=== PATIENT | female | born 1960 | race Caucasian/White ===

== ENCOUNTER → 2024-05-25 | Outpatient (BNVA) | payer MEDICARE, MEDICAID, SELFPAY | END | disposition home or self-care (01) | PROVIDERS: PCP Registered Nurse Community Health; Referring Provider Registered Nurse Community Health; Visit Provider Physician Assistant | DX: N31.9 Neuromuscular dysfunction of bladder, unspecified (principal); I10 Essential (primary) hypertension; Z87.440 Personal history of urinary (tract) infections; Z95.0 Presence of cardiac pacemaker | CPT/HCPCS: 99212; Q3014; G0463 ==

== ENCOUNTER 2024-06-19 13:12 | Emergency (ER) | payer MEDICARE, MEDICAID, SELFPAY ==
[2024-06-19 13:35] VITALS: BP 143/95; PULSE 60; RESP 18; TEMP 36.7; O2SAT 99
--- NOTE | 2024-06-19 13:47 | XR_ITS ---
Examination: CT brain head without contrast. 2-D sagittal coronal reconstructions Date and time of exam:June 19, 2024 1414 hrs. Indications: Patient fell today with injury to the head, head pain CTDI: vol (mGy):52.8 DLP: (mGycm):1048 Technique: Multiple CT axial sections of the brain have been obtained, 5 mm slice thickness. Contrast has not been administered. 2-D sagittal, coronal reconstructions have been obtained Low dose protocols were performed. One or more of the following dose reduction techniques were used; automated exposure control, adjustment of the mA and/or KV according to patient size, use of iterative reconstruction technique. Findings: No significant ventricular enlargement. Intra-axial or extra-axial hemorrhage density is not seen. No mass effect or midline shift Basal cisterns are not remarkable. Fourth ventricle is midline. Cranial vault intact. Impression: Negative for acute hemorrhage, mass effect or midline shift
--- NOTE | 2024-06-19 13:48 | EDNOTE_ITS ---
<Statement entered by Whit Chirinos MD - 06/19/24 17:35> As co-signing physician, I was present and available for consult prn. I concur with the plan and care as documented by the midlevel provider. ED Wound/Laceration-RME/HPI General Chief Complaint: Wound/Laceration Stated Complaint: LAC TO RIGHT FOREHEAD, CONNOR Time Seen by Provider: 06/19/24 13:23 Arrival date/time: 06/19/24 13:12 RME / HPI RME / HPI narrative: 64-year-old female patient was brought in by caregiver for evaluation regarding ground-level fall. Patient sustained a ground-level fall, trip and fall, sustaining 1 cm gaping laceration, mid forehead. Patient complained of headache. Denies any neck pain. Denies any other injury patient is taking Xarelto. Related Data Home Medications ?Medication ?Instructions ?Recorded ?Confirmed aripiprazole 5 mg tablet 5 mg PO QHS 08/22/22 5 buspirone 10 mg tablet 10 mg PO TID 08/22/22 famotidine 40 mg tablet 40 mg PO QDAY 08/22/2205/25 fluticasone propionate 50 2 spray intranasal QDAY 04/1505/25/24 mcg/actuation nasal spray,suspension fosinopril 20 mg tablet 20 mg PO QDAY 08/22/2205/25 ibuprofen 600 mg tablet 600 mg PO BID PRN 08/22/22 0 05/25/24 loratadine 10 mg tablet 10 mg PO QDAY 08/22/2205/25 metoprolol tartrate 25 mg tablet 25 mg PO BID 08/22/22 05/25/24 mirabegron 50 mg tablet,extended 50 mg PO QDAY 3 05/25/24 release 24 hr (Myrbetriq) rivaroxaban 20 mg tablet (Xarelto) 20 mg PO QDAY 08/2205/25/24 solifenacin 10 mg tablet 10 mg PO QDAY 08/22/2205/25 spironolactone 25 mg tablet 25 mg PO QDAY 08/22/2207/16 zonisamide 100 mg capsule 300 mg PO QHS 08/22/2205/25 Allergies Allergy/AdvReac Type Severity Reaction Status Date / Time No Known Allergies Allergy Verified 05/25/24 13:39 Review of Systems Review of Systems Narrative Review of Systems: Review of system reviewed and within normal limits except mentioned in HPI ED Exam Narrative Physical exam: VITAL SIGNS: Reviewed. GENERAL APPEARANCE: Alert and interactive, follows commands, no acute distress, HEAD AND FACE: +2 cm gaping laceration forehead ENT: PERRL, pink conjunctivitis, eyelid no trauma, Mucous membrane moist. NECK: Supple, nontender, no nuchal rigidity. CHEST: No tenderness, no crepitus, no paradoxical movement, no retractions. LUNGS: Clear, well ventilated, symmetric, no rales, no wheezing, no ronchi, no stridor, good breath sounds bilaterally. HEART: Regular rate, regular rhythm, no murmur, no gallops. ABDOMEN: Soft, positive bowel sounds, nondistended, no guarding, nontender, no rebound, no masses, RECTAL: Deferred. GENITAL: Deferred. NEUROLOGICAL: Gross motor function intact sensory function intact, Appropriate for age. MUSCULOSKELETAL: low back nontender, full range of motion. EXTREMITIES: Nontender, full range of motion. SKIN: Color pink, dry, no rash, no lacerations, no abrasions, no contusions. LYMPHATICS: Deferred. Course Quality Measures none Orders Category Date Time Status CT head/brain wo con Stat Exams 06/19/24 13:47 Completed Acetaminophen Tab [Tylenol ES Tab] Med 06/19/24 13:47 Discontinued 1,000 mg PO X1 ONE Lidocaine 1% 20 ml [Xylocaine 1% 20 ML] Med 06/19/24 13:47 Discontinued 10 ml INFL X1 ONE TET,DIP/PERT AC (Adult)-Tdap [Boostrix Adult (Tdap) Med 06/19/24 13:48 Discontinued Vacc] 0.5 ml IMI .ONCE ONE Vital Signs Vital signs: Vital Signs Temperature 98.1 F 06/19/24 13:35 Pulse Rate 60 06/19/24 13:35 Respiratory Rate 18 06/19/24 13:35 Blood Pressure 143/95 H 06/19/24 13:35 Pulse Oximetry (%) 99 06/19/24 13:35 Oxygen Delivery Method Room Air 06/19/24 13:35 Procedures -ED Laceration Laceration 1: Site: face Size (cm): 1 Description: linear Depth: simple, single layer Local Anesthetic: lidocaine 1% Amount of anesthesia used (mL): 2 Pre-repair: wound explored and irrigated extensively Skin layer closed with: nylon Size (cm): 5-0 Number of sutures: 3 Technique: simple, interrupted Wound / Laceration MDM Narrative MDM Narrative:: 64-year-old female patient was brought in by caregiver for evaluation regarding ground-level fall. Patient sustained a ground-level fall, trip and fall, sustaining 1 cm gaping laceration, mid forehead. Patient complained of headache. Denies any neck pain. Denies any other injury patient is taking Xarelto. CT scan of the head came back unremarkable. Repair and suturing was done by me see procedure notes. Patient tolerated the procedure well. Patient tolerated the procedure well. 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 Medications / Prescriptions Medications or Prescriptions considered but not ordered:: None Medication administrations:: Medication Administration History Discontinued Medications Acetaminophen (Acetaminophen 500 Mg Tablet) 1,000 mg PO X1 ONE Stop: 06/19/24 13:48 Last Admin: 06/19/24 14:05 Dose: 1,000 mg Documented By: Diphtheria/Tetanus/Acell Pertussis (Diphth,Pertuss(Acell),Tet Vac 0.5 Ml Syr- Adult) 0.5 ml IMi .ONCE ONE Stop: 06/19/24 13:49 Last Admin: 06/19/24 14:45 Dose: 0.5 ml Documented By: Lidocaine HCl (Lidocaine Hcl 1% 20 Ml Vial) 10 ml INFL X1 ONE Stop: 06/19/24 13:48 Last Admin: 06/19/24 14:39 Dose: 10 ml Documented By: Boostrix and Tylenol Consultations Consultation(s) initiated? (list below): No Diagnosis Wound Differential Diagnosis: laceration, abrasion and avulsion of skin Most likely diagnosis given after review of the tests above:: Forehead laceration Admission Indicated Admission indicated?: not indicated Admission Request Was there a request for admission?: No Disposition Plan Disposition Plan: Discharge Discharge Attestation Discharge Attestation: The patient and all family members were given an opportunity to ask questions and understood the discharge instructions. Discharge instructions specifically effects, indications for sooner follow up or return to the emergency department, and the expected course of current diagnosis. Patient condition: Stable Discharge Plan Plan Patient Disposition: HOME (Self Care) Disposition Comment: Stable Prescriptions/Referrals Prescriptions/Med Rec: No Action Xarelto 20 mg tablet 20 mg PO QDAY Rx Instructions: must administer with evening meal zonisamide 100 mg capsule 300 mg PO QHS metoprolol tartrate 25 mg tablet 25 mg PO BID buspirone 10 mg tablet 10 mg PO TID fluticasone propionate 50 mcg/actuation spray,suspension 2 spray intranasal QDAY Rx Instructions: administer into each nostril ibuprofen 600 mg tablet 600 mg PO BID PRN aripiprazole 5 mg tablet 5 mg PO QHS famotidine 40 mg tablet 40 mg PO QDAY fosinopril 20 mg tablet 20 mg PO QDAY loratadine 10 mg tablet 10 mg PO QDAY Myrbetriq 50 mg tablet extended release 24 hr 50 mg PO QDAY solifenacin 10 mg tablet 10 mg PO QDAY spironolactone 25 mg tablet 25 mg PO QDAY Referrals: Blessing Walsh FNP [Primary Care Provider] - In 1 week Problem List Clinical Impression: Forehead laceration Patient/Caregiver Discharge Instructions Discharge Activity: activity as tolerated Education Materials: ED Laceration: All Closures Additional Instructions: Thank you for the opportunity for serving you today. You are stable for discharged . You are advised to: Follow-up with your PCP in 1 to 2 days Return to ED for worsening of symptoms Increase oral fluids Due to dressing with bacitracin as needed For removal of sutures in 7 days Print Language: Maori Stand Alone Forms: Stephanie Award Info., Patient Portal Info Letter LINNEA/OMAR Supervising Physician LINNEA/OMAR Supervising Physician: MD Taran
[2024-06-19] MEDS: ACETAMINOPHEN 500 MG TABLET 1000 MG PO (14:05)
[2024-06-19] MEDS: LIDOCAINE HCL 1% 20 ML VIAL 10 ML INFL (14:39)
[2024-06-19] MEDS: DIPHTH,PERTUSS(ACELL),TET VAC 0.5 ML SYR- ADULT IMi (14:45)
== END 2024-06-19 16:20 | disposition home or self-care (01) ==
PROVIDERS: Emergency Provider Emergency Medicine; PCP Registered Nurse Community Health
DX: S01.81XA Laceration without foreign body of other part of head, initial encounter (principal); W01.0XXA Fall on same level from slipping, tripping and stumbling without subsequent striking against object, initial encounter; Z23 Encounter for immunization
CPT/HCPCS: 12011; 70450; 90471; 90715; 99284; J3490; A9270

== ENCOUNTER → 2024-07-26 | Outpatient (CLI) | payer MEDICARE, MEDICAID, SELFPAY ==
--- NOTE | 2024-07-26 10:00 | XR_ITS ---
Examination: Ultrasound soft tissue left axilla TECHNIQUE: Grayscale sonographic images soft tissue left axilla Exam date and time: July 26, 2024 1022 hours INDICATIONS: Palpable left left axilla on examination by provider several months ago FINDINGS: Left axillary mass with architectural distortion 4.8 x 2.0 x 3.0 cm IMPRESSION: Abnormal left axillary mass, recommend ultrasound-guided biopsy of this mass to confirm malignancy
--- NOTE | 2024-07-26 10:30 | XR_ITS ---
Examination: Screening digital mammography, bilateral Computer aided detection 3-D breast Tomosynthesis, bilateral Date and time of exam: July 26, 2024 1032 hours Compared to mammograms dating to July 17, 2022 Indication: Screening Technique: Nonmagnified MLO, CC views of the breasts to been obtained, reconstructed from 3-D Tomosynthesis images. R2 computer aided detection program utilized for evaluation of suspicious masses and/or abnormal calcifications. 3-D Tomosynthesis images obtained. Findings: Scattered areas of fibroglandular density. Benign calcifications. No interval suspicious masses Impression: BI-RADS category II: Benign Findings. Recommend 1 year follow-up mammogram.
== END | disposition home or self-care (01) ==
LOC: CDIM 10:09
PROVIDERS: Referring Provider Registered Nurse Community Health; Visit Provider Registered Nurse Community Health
DX: Z12.31 Encounter for screening mammogram for malignant neoplasm of breast (principal); R92.323 Mammographic fibroglandular density, bilateral breasts; R92.1 Mammographic calcification found on diagnostic imaging of breast; N63.32 Unspecified lump in axillary tail of the left breast
CPT/HCPCS: 76882; 77063; 77067

== ENCOUNTER → 2024-10-04 | Outpatient (CLI) | payer MEDICARE, MEDICAID, SELFPAY ==
[2024-10-04 07:52] LABS: Basophils # (Auto) 0.0 Thou/mm3 (0.0-0.2); Basophils % (Auto) 1 % (0-2.5); Eosinophils # (Auto) 0.3 Thou/mm3 (0.0-0.5); Eosinophils % (Auto) 5 % (0-10); Hematocrit 40.6 % (36.0-46.0); Hemoglobin 13.6 g/dL (12.0-16.0); Immature Granulocytes Auto 0.02 Thou/mm3 (0.00-0.00); Lymphocytes # (Auto) 1.4 Thou/mm3 (1.0-4.8); Lymphocytes % (Auto) 24 % (10-50); Mean Corpuscular HGB Conc 33.5 g/dl (31.0-37.0); Mean Corpuscular Hemoglobin 31.8 pg (25.0-35.0); Mean Corpuscular Volume 95 fL (80-100); Monocytes # (Auto) 0.5 Thou/mm3 (0.0-0.8); Monocytes % (Auto) 9 % (0-12); Neutrophils # (Auto) 3.6 Thou/mm3 (1.8-7.7); Neutrophils % (Auto) 62 % (37-80); Nucleated Red Blood Cell # 0.00 Thou/mm3 (0.00-0.00); Nucleated Red Blood Cell % 0 /100 WBC (0); Platelet Count 172 Thou/mm3 (140-440); RDW Standard Deviation 44.2 fL (36.4-46.3); Red Blood Count 4.28 Miln/mm3 (4.00-5.20); White Blood Count 5.8 Thou/mm3 (3.6-11.0)
--- NOTE | 2024-10-04 08:30 | XR_ITS ---
Examinations: Ultrasound-guided percutaneous left axillary mass biopsy Left axillary sonography limited INDICATIONS: Abnormal left axillary mass on ultrasound exam of July 26, 2024 Exam date and time: October 04, 2024 0939 hours Informed consent provided. Technique: A timeout was completed verifying correct patient, procedure, site, positioning, and special equipment if applicable Informed consent provided. The patient was placed in a supine position for the axillary mass biopsy Sonographic images of the left exam were performed for localization of the suspicious nodule The patient's axilla was prepped and draped in sterile fashion. Maximum sterile barrier technique, hand hygiene, ultrasound sterile technique 1% lidocaine utilized for local anesthesia Utilizing ultrasonographic guidance, 8 core biopsies were obtained of the suspicious axillary nodule utilizing an 18-gauge BioPince needle. The specimens appears satisfactory. Estimated blood loss 3 cc. The patient tolerated the procedure well and there were no complications. Impression: Successful ultrasound-guided percutaneous left axillary mass biopsy
[2024-10-04 09:17] LABS: INR 1.1 (0.9-1.3); Partial Thromboplastin Time 34.7 Seconds (22.0-36.0); Prothrombin Time 12.2 Seconds (9.0-12.2)
== END | disposition home or self-care (01) ==
PROVIDERS: Radiology Diagnostic Radiology; PCP Registered Nurse Community Health; Referring Provider Registered Nurse Community Health; Visit Provider Registered Nurse Community Health
DX: D36.0 Benign neoplasm of lymph nodes (principal); D24.2 Benign neoplasm of left breast
CPT/HCPCS: 38505; 36415; 85025; 85610; 85730